=== PATIENT | female | born 1975 | race Caucasian/White ===

== ENCOUNTER → 2021-10-20 | Outpatient (REF) ==
--- NOTE | 2021-10-20 09:50 | Diagnostic Imaging Report ---
INDICATION: Medical monitoring. Frontal chest obtained at 0934 a.m. There is no prior study for comparison. FINDINGS: The heart and mediastinal silhouette are normal in appearance. The lungs are clear. There is no sign of congestive failure or infiltrate. There is no pleural fluid collection. IMPRESSION: Normal chest. Dictated by: Dictated on workstation # [id number]
== END ==
LOC: OCC 09:23
PROVIDERS: ATTEND Family Medicine
DX: Z00.00 Encounter for general adult medical examination without abnormal findings (principal)
CPT/HCPCS: 71045